=== PATIENT | female | born 2000 | race Caucasian/White ===

== ENCOUNTER 2020-04-27 17:55 | Emergency (ER) | payer OTHER ==
[~2020-04-27] VITALS: Ht 162 cm; Wt 77.0 kg
[2020-04-27] MEDS ORDERED: NS IV 1000 ML 1,000 ML IV SCH ×2 (18:45→20:00)
[2020-04-27 18:58] LABS: BILIRUBIN,URINE NEGATIVE (NEGATIVE); CLARITY,URINE OTHER; COLOR,URINE YELLOW; GLUCOSE, URINE (UA) 3+ (NEGATIVE); KETONES,URINE NEGATIVE (NEGATIVE); LEUKOCYTE ESTERASE ,URINE NEGATIVE (NEGATIVE); NITRITE,URINE NEGATIVE (NEGATIVE); PROTEIN,URINE NEGATIVE (NEGATIVE)
[2020-04-27 19:14] LABS: AMPHETAMINE SCREEN, URINE NEGATIVE (NEGATIVE); BARBITURATE SCREEN URINE NEGATIVE (NEGATIVE); BENZODIAZEPINES SCREEN URINE NEGATIVE (NEGATIVE); CANNABINOID SCREEN, URINE NEGATIVE (NEGATIVE); COCAINE SCREEN URINE NEGATIVE (NEGATIVE); METHADONE STAT NEGATIVE (NEGATIVE); METHAMPHETAMINE SCREEN URINE S NEGATIVE (NEGATIVE); OPIATE SCREEN URINE NEGATIVE (NEGATIVE); OXYCODONE STAT NEGATIVE (NEGATIVE); PROPOXYPHENE STAT NEGATIVE (NEGATIVE); TRICYCLIC ANTIDEPRESSANTS SCRE NEGATIVE (NEGATIVE)
[2020-04-27] MEDS ORDERED: ONDANSETRON 4 MG/2 ML (SDV) Z0FRAN IVP ONE (19:15)
[2020-04-27 19:18] LABS: BACTERIA,URINE FEW /HPF; RBC,URINE 0-2 /HPF; SQUAMOUS EPITHELIAL CELL,UR 0-2 /HPF; WBC,URINE 0-2 /HPF
[2020-04-27 19:18] LABS: BASOPHILS % (AUTO) 0 % (0-10); EOSINOPHILS # (AUTO) 0.1 10^3/uL (0.0-0.3); EOSINOPHILS % (AUTO) 1 % (0-10); HEMATOCRIT 41 % (35-52); HEMOGLOBIN 13.7 g/dL (11.5-16.0); LYMPHOCYTES # (AUTO) 2.1 10^3/uL (1.0-4.0); LYMPHOCYTES % (AUTO) 33 % (12-44); MEAN CORPUSCULAR HEMOGLOBIN 29 pg (25-34); MEAN CORPUSCULAR HGB CONC 33 g/dL (32-36); MEAN CORPUSCULAR VOLUME 88 fL (80-99); MEAN PLATELET VOLUME 9.2 fL (9.0-12.2); MONOCYTES # (AUTO) 0.5 10^3/uL (0.0-1.0); MONOCYTES % (AUTO) 9 % (0-12); NEUTROPHILS # (AUTO) 3.6 10^3/uL (1.8-7.8); NEUTROPHILS % (AUTO) 57 % (42-75); PLATELET COUNT 303 10^3/uL (130-400); WHITE BLOOD COUNT 6.4 10^3/uL (4.3-11.0)
[2020-04-27 19:27] LABS: CHLORIDE 104 MMOL/L (98-107); POTASSIUM 4.1 MMOL/L (3.6-5.0); SODIUM 134 MMOL/L (135-145)
[2020-04-27 19:28] LABS: AMYLASE 58 U/L (25-125); CALCIUM 8.8 MG/DL (8.5-10.1)
[2020-04-27 19:29] LABS: GLUCOSE 297 MG/DL (70-105); TOTAL PROTEIN 7.4 GM/DL (6.4-8.2)
[2020-04-27 19:30] LABS: CARBON DIOXIDE 19 MMOL/L (21-32)
[2020-04-27 19:31] LABS: BILIRUBIN,TOTAL 0.2 MG/DL (0.1-1.0)
[2020-04-27 19:33] LABS: ALKALINE PHOSPHATASE 79 U/L (40-136); CREATININE SERUM 0.87 MG/DL (0.60-1.30); GFR ESTIMATED > 60
[2020-04-27 19:34] LABS: BUN/CREATININE RATIO 11
[2020-04-27 19:36] LABS: ALANINE AMINOTRANSFERASE 19 U/L (0-55); LIPASE 31 U/L (8-78)
[2020-04-27 19:56] LABS: TSH (THYROID ANALYZER) 1.56 UIU/ML (0.35-4.94)
[2020-04-27 20:00] LABS: ABG OXYGEN SATURATION 99 % (94-100); ABG PCO2 32 MMHG (35-45); ABG PH 7.44 (7.37-7.43); ABG PO2 126 MMHG (79-93); ABG TCO2 22.5 MMOL/L (21.0-31.0); ALLENS TEST POS; INSPIRED O2 ROOM AIR
[2020-04-27] MEDS ORDERED: inSUlin (REGULAR) HUMAN 1 UNIT/0.01 ML (CHARGE PER UNIT) IV ONE (20:00)
[2020-04-27 20:01] LABS: PATIENT TEMP 37.1; VENTILATOR NO
--- NOTE | 2020-04-27 20:54 | ED General ---
General Chief Complaint: Glucose Problems Stated Complaint: TYPE I DIABETIC / GLUCOSE LVL [id number] Nursing Triage Note: Pt reports uncontrolled blood sugars for past 2 weeks stating sugars have been in 300+ and then reading low within hours. Pt states she has been on menstrual period for last 2 weeks. 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 Nursing Sepsis Screen: No Definite Risk Source of Information: Patient History of Present Illness Date Seen by Provider: Apr 27, 2020 Time Seen by Provider: 18:45 Initial Comments PT ARRIVES VIA POV WITH FEMALE FRIEND STATES SHE IS TYPE 1 DIABETIC, DX OVER A YEAR AGO--01/2019 STATES HER BLOOD SUGARS HAVE BEEN "EVERYWHERE" FOR THE LAST 2 WEEKS--STATES "THEY GO FROM 80 TO OVER 300 IN 30 MINUTES AND THEN DROP" STATES TODAY, SHE WOKE UP FROM A NAP AT 1630 AND HER BLOOD SUGAR WAS 350, "THEN IT KEPT RISING UNTIL IT WAS 410" STATES SHE TAKES TRESIBA AND HUMALOG "SLIDING SCALE" STATES SHE HAD 12 UNITS OF HUMALOG AT LUNCH AND 17 UNITS JUST PRIOR TO ARRIVAL. C/O THIRST AND URINARY FREQUENCY + NAUSEA, NO VOMITING OR DIARRHEA NO PAIN ON URINATION NO FEVER NO ABDOMINAL PAIN NO RECENT ILLNESS SYMPTOMS NO DIFFERENT PAULINO HAS NOT SOUGHT CARE UNTIL PAULINO HAS HAD ONGOING PROBLEMS WITH IRREGULAR PERIODS AND HAS BEEN ON HER PERIOD FOR THE LAST 2 WEEKS. ON OCP'S PCP [place] PT IS [facility] [place] Allergies and Home Medications Allergies Coded Allergies: acetaminophen (Verified Allergy, Unknown, 04/27/20) Patient Home Medication List Home Medication List Reviewed: Yes Review of Systems Review of Systems Constitutional: no symptoms reported; No chills, No diaphoresis, No dizziness, No fever, No malaise, No weakness EENTM: no symptoms reported Respiratory: no symptoms reported Cardiovascular: no symptoms reported Gastrointestinal: see HPI; No abdominal pain, No diarrhea; nausea; No vomiting Genitourinary: No dysuria; frequency; No hematuria, No pain Musculoskeletal: no symptoms reported Skin: no symptoms reported Psychiatric/Neurological: No Symptoms Reported Hematologic/Lymphatic: No Symptoms Reported Immunological/Allergic: no symptoms reported Past Sasoeyk-Bvymmr-Jebzsp Hx Patient Social History Alcohol Use: Occasionally Uses Drug of Choice: DENIES Smoking Status: Never a Smoker Recent Infectious Disease Expo: No Recent Hopitalizations: No Seasonal Allergies Seasonal Allergies: No Past Medical History Surgeries: Yes (LEFT ELBOW FX / ORIF) Orthopedic Respiratory: No Cardiac: No Neurological: No : No Reproductive Disorders: No Genitourinary: No Gastrointestinal: No Musculoskeletal: Yes (LEFT ELBOW FX/ORIF) Fractures Endocrine: Yes (TYPE 1 DIABETES DX 01/2019. ) Diabetes, Insulin dep HEENT: No Cancer: No Psychosocial: No Integumentary: No Blood Disorders: No Physical Exam Vital Signs Vital Signs - First Documented 04/27/20 04/27/20 18:03 20:58 Temp 37.2 Pulse 75 Resp 18 B/P (MAP) 131/85 (100) Pulse Ox 99 O2 Delivery Room Air Capillary Refill : Less Than 3 Seconds Height, Weight, BMI Height: '" Weight: lbs. oz. kg; 29.00 BMI Method: General Appearance: No Apparent Distress, WD/WN, Other (HIR DYED BLUE) HEENT: Normal ENT Inspection, Other (ORAL MUCOSA MOIST) Neck: Normal Inspection Respiratory: Normal Breath Sounds, No Accessory Muscle Use, No Respiratory Distress Cardiovascular: Regular Rate, Rhythm, No Murmur Gastrointestinal: Non Tender, Soft Back: No CVA Tenderness Extremity: Normal Inspection Neurologic/Psychiatric: Alert, Oriented x3, No Motor/Sensory Deficits, Normal Mood/Affect, security architect II-XII Norm as Tested Skin: Normal Color, Warm/Dry Focused Exam Lactate Level 04/27/20 19:27: Lactic Acid Level 1.42 Lactic Acid Level Laboratory Tests Test 04/27/20 19:27 Lactic Acid Level 1.42 MMOL/L (0.50-2.00) Progress/Results/Core Measures Suspected Sepsis Recent Fever Within 48 Hours: No Infection Criteria Present: None New/Unexplained Altered Menta: No Sepsis Screen: No Definite Risk SIRS Temperature: Pulse: 75 Respiratory Rate: 18 Laboratory Tests 04/27/20 19:05: White Blood Count 6.4 Blood Pressure 131 /85 Mean: 100 04/27/20 19:27: Lactic Acid Level 1.42 Laboratory Tests 04/27/20 19:05: Creatinine 0.87, Platelet Count 303, Total Bilirubin 0.2 Results/Orders Lab Results Laboratory Tests Test 04/27/20 18:10 04/27/20 18:50 04/27/20 19:05 04/27/20 19:08 Range/Units Glucometer 325 H 70-110 MG/DL Urine Color YELLOW Urine Clarity OTHER Urine pH 6.0 5-9 Urine Specific [place] 1.015 L 1.016-1.022 Urine Protein NEGATIVE NEGATIVE Urine Glucose (UA) 3+ H NEGATIVE Urine Ketones NEGATIVE NEGATIVE Urine Nitrite NEGATIVE NEGATIVE Urine Bilirubin NEGATIVE NEGATIVE Urine Urobilinogen 0.2 < = 1.0 MG/DL Urine Leukocyte Esterase NEGATIVE NEGATIVE Urine RBC (Auto) 1+ H NEGATIVE Urine RBC 0-2 /HPF Urine WBC 0-2 /HPF Urine Squamous Epithelial Cells 0-2 /HPF Urine Crystals NONE /LPF Urine Bacteria FEW H /HPF Urine Casts NONE /LPF Urine Mucus NEGATIVE /LPF Urine Culture Indicated NO Urine Opiates Screen NEGATIVE NEGATIVE Urine Oxycodone Screen NEGATIVE NEGATIVE Urine Methadone Screen NEGATIVE NEGATIVE Urine Propoxyphene Screen NEGATIVE NEGATIVE Urine Barbiturates Screen NEGATIVE NEGATIVE Ur Tricyclic Antidepressants Screen NEGATIVE NEGATIVE Urine Phencyclidine Screen NEGATIVE NEGATIVE Urine Amphetamines Screen NEGATIVE NEGATIVE Urine Methamphetamines Screen NEGATIVE NEGATIVE Urine Benzodiazepines Screen NEGATIVE NEGATIVE Urine Cocaine Screen NEGATIVE NEGATIVE Urine Cannabinoids Screen NEGATIVE NEGATIVE White Blood Count 6.4 4.3-11.0 10^3/uL Red Blood Count 4.66 3.80-5.11 10^6/uL Hemoglobin 13.7 11.5-16.0 g/dL Hematocrit 41 35-52 % Mean Corpuscular Volume 88 80-99 fL Mean Corpuscular Hemoglobin 29 25-34 pg Mean Corpuscular Hemoglobin Concent 33 32-36 g/dL Red Cell Distribution Width 11.8 10.0-14.5 % Platelet Count 303 130-400 10^3/uL Mean Platelet Volume 9.2 9.0-12.2 fL Immature Granulocyte % (Auto) 0 % Neutrophils (%) (Auto) 57 42-75 % Lymphocytes (%) (Auto) 33 12-44 % Monocytes (%) (Auto) 9 0-12 % Eosinophils (%) (Auto) 1 0-10 % Basophils (%) (Auto) 0 0-10 % Neutrophils # (Auto) 3.6 1.8-7.8 10^3/uL Lymphocytes # (Auto) 2.1 1.0-4.0 10^3/uL Monocytes # (Auto) 0.5 0.0-1.0 10^3/uL Eosinophils # (Auto) 0.1 0.0-0.3 10^3/uL Basophils # (Auto) 0.0 0.0-0.1 10^3/uL Immature Granulocyte # (Auto) 0.0 0.0-0.1 10^3/uL Sodium Level 134 L 135-145 MMOL/L Potassium Level 4.1 3.6-5.0 MMOL/L Chloride Level 104 98-107 MMOL/L Carbon Dioxide Level 19 L 21-32 MMOL/L Anion Gap 11 5-14 MMOL/L Blood Urea Nitrogen 10 7-18 MG/DL Creatinine 0.87 0.60-1.30 MG/DL Estimat Glomerular Filtration Rate > 60 BUN/Creatinine Ratio 11 Glucose Level 297 H 70-105 MG/DL Calcium Level 8.8 8.5-10.1 MG/DL Corrected Calcium 8.8 8.5-10.1 MG/DL Total Bilirubin 0.2 0.1-1.0 MG/DL Aspartate Amino Transf (AST/SGOT) 20 5-34 U/L Alanine Aminotransferase (ALT/SGPT) 19 0-55 U/L Alkaline Phosphatase 79 40-136 U/L Total Protein 7.4 6.4-8.2 GM/DL Albumin 4.0 3.2-4.5 GM/DL Amylase Level 58 25-125 U/L Lipase 31 8-78 U/L TSH [place] Testing 1.56 0.35-4.94 UIU/ML Serum Test, Qualitative NEGATIVE NEGATIVE Blood Gas Puncture Site LT RAD Blood Gas Patient Temperature 37.1 Arterial Blood pH 7.44 H 7.37-7.43 Arterial Blood Partial Pressure CO2 32 L 35-45 MMHG Arterial Blood Partial Pressure O2 126 H 79-93 MMHG Arterial Blood HCO3 22 L 23-27 MMOL/L Arterial Blood Total CO2 22.5 21.0-31.0 MMOL/L Arterial Blood Oxygen Saturation 99 94-100 % Arterial Blood Base Excess -2.0 -2.5-2.5 MMOL/L [place] Test POS Blood Gas Ventilator Setting NO Blood Gas Inspired Oxygen ROOM AIR Test 04/27/20 19:27 04/27/20 20:18 Range/Units Lactic Acid Level 1.42 0.50-2.00 MMOL/L Glucometer 149 H 70-110 MG/DL My Orders Orders - NEELIMA BERMUDEZ DO Accucheck Stat ONCE (04/27/20 18:44) Ed Iv/Invasive Line Start (04/27/20 18:44) Urine Bedside (04/27/20 18:44) Monitor-Rhythm Ecg Trace Only (04/27/20 18:44) Amylase (04/27/20 18:44) Arterial Blood Gas (04/27/20 18:44) Cbc With Automated Diff (04/27/20 18:44) Comprehensive Metabolic Panel (04/27/20 18:44) Drug Screen Stat (Urine) (04/27/20 18:44) Hcg,Qualitative Serum (04/27/20 18:44) Lactic Acid Analyzer (04/27/20 18:44) Lipase (04/27/20 18:44) Thyroid Analyzer (04/27/20 18:44) Ua Culture If Indicated (04/27/20 18:44) Ed Iv/Invasive Line Start (04/27/20 18:44) Ns Iv 1000 Ml (Sodium Chloride 0.9%) (04/27/20 18:45) Ondansetron Injection (Zofran Injectio (04/27/20 19:15) Insulin (Regular) Human (Novolin R (Per (04/27/20 20:00) Ed Iv/Invasive Line Start (04/27/20 19:46) Ns Iv 1000 Ml (Sodium Chloride 0.9%) (04/27/20 20:00) Accucheck Stat ONCE (04/27/20 20:08) Medications Given in ED Current Medications Medications Dose Ordered Sig/Aundrea Route Start Time Stop Time Status Last Admin Dose Admin Ondansetron HCl 4 mg ONCE ONCE IVP 04/27/20 19:15 04/27/20 19:16 DC 04/27/20 19:19 4 MG Vital Signs/I&O 04/27/20 04/27/20 18:03 20:58 Temp 37.2 37.0 Pulse 75 87 Resp 18 16 B/P (MAP) 131/85 (100) 120/84 (100) Pulse Ox 99 O2 Delivery Room Air Room Air 04/27/20 23:59 Intake Total 2000 ml Balance 2000 ml Capillary Refill : Less Than 3 Seconds Blood Pressure Mean: 100 Point of Care Testing Finger Stick Blood Glucose: 149 Blood Glucose Action Taken: DR BERMUDEZ INFORMED Progress Note : Progress Note GIVEN IV FLUIDS REPEAT ACCUCHECK 149, SO INSULIN HELD UNEVENTFUL ER STAY. Departure Impression Primary Impression: Uncontrolled diabetes mellitus Disposition: 01 HOME, SELF-CARE Condition: Stable Departure-Patient Inst. Referrals: NO,LOCAL PHYSICIAN (PCP) Primary Care Physician SATHISH PILLAI MD Patient Instructions: How to Keep Track of Your Blood Sugar, How to Prevent Hig h Blood Sugar Emergencies in Diabetes, Diabetes and Diet, Diabetes Type 1, Adult (DC) Add. Discharge Instructions: CHECK YOUR BLOOD SUGARS 4 TIMES A DAY--BEFORE EACH MEAL AND AT BEDTIME FOLLOW DIABETIC DIET 1200 CALORIES INCREASE YOUR PROTEIN AND DECREASE YOUR CARBOHYDRATE INTAKE FOLLOW UP WITH [facility] IN 1-2 DAYS FOR FURTHER CARE All discharge instructions reviewed with patient and/or family. Voiced understanding. NEELIMA BERMUDEZ DO Apr 27, 2020 20:54
[2020-04-27 20:58] VITALS: BP 120/84
== END 2020-04-27 21:05 | disposition home or self-care (01) ==
LOC: ER 17:58
DX: E10.65 Type 1 diabetes mellitus with hyperglycemia (principal); I10 Essential (primary) hypertension; Z88.6 Allergy status to analgesic agent
CPT/HCPCS: 36415; 80053; 80306; 81000; 82150; 82805; 82962; 83605; 83690; 84443; 84703; 85025; 93041

== ENCOUNTER → 2021-05-05 | Outpatient (CLI) | payer OTHER ==
--- NOTE | 2021-05-05 13:26 | Diagnostic Imaging Report ---
INDICATION: Anatomy scan. TECHNIQUE: Multiple real-time grayscale images were obtained over the gravid uterus. COMPARISON: None FINDINGS: There is a single live fetus in the cephalic presentation. heart rate was recorded at 153 bpm. Placenta is anterior. Amniotic fluid volume is normal. Cervical length is 5.7 cm. survey shows kidneys, bladder and stomach to be unremarkable. brains unremarkable. There is a four-chamber heart. There is a three-vessel cord with normal insertion. spine is unremarkable. Biometrical measurements are as follows: Biparietal 5.33 cm, age 22 weeks 2 days. Head circumference 19.95 cm, age 22 weeks 1 days. Abdominal circumference 16.81 cm, age 21 weeks 6 days. Femur length 3.90 cm, age 22 weeks 4 days. Sonographic estimate age: 22 weeks 2 days. Sonographic estimated date of delivery: 09/06/21. Estimated Weight: 479 gm (+/- 70 gm). LMP percentile: 86%. heart rate: 153 beats per minute. number: 1 of 1. IMPRESSION: Single live IUP 22 weeks 2 days gestational age with estimated of confinement sonographically of 09/06/2021. Dictated by: Dictated on workstation # [id number]
== END ==
LOC: RAD 12:00
PROVIDERS: ATTEND Obstetrics & Gynecology
DX: Z34.02 Encounter for supervision of normal first pregnancy, second trimester (principal); Z3A.22 22 weeks gestation of pregnancy
CPT/HCPCS: 76805

== ENCOUNTER 2021-06-12 04:21 | Outpatient (CLI) | payer OTHER ==
[~2021-06-12] VITALS: Ht 162.5 cm; Wt 91.6 kg
[2021-06-12 04:41] VITALS: BP 117/66
[2021-06-12 04:52] VITALS: BP 117/66
[2021-06-12 04:57] LABS: BILIRUBIN,URINE NEGATIVE (NEGATIVE); CLARITY,URINE CLEAR; COLOR,URINE YELLOW; GLUCOSE, URINE (UA) TRACE (NEGATIVE); KETONES,URINE NEGATIVE (NEGATIVE); LEUKOCYTE ESTERASE ,URINE TRACE (NEGATIVE); NITRITE,URINE NEGATIVE (NEGATIVE); PROTEIN,URINE NEGATIVE (NEGATIVE)
[2021-06-12 05:07] LABS: BACTERIA,URINE NEGATIVE /HPF; SQUAMOUS EPITHELIAL CELL,UR 0-2 /HPF; WBC,URINE 0-2 /HPF
--- NOTE | 2021-06-13 08:18 | Physician Query-Final Dx ---
HERMINIO,06/13/21 0818: Clinic Account Progress/Dx Physician Query: Please give diagnosis Please include # weeks gestation Date of Service Jun 12, 2021 at 04:21 MARIE MACKAY MD 06/13/21 0855: Clinic Account Progress/Dx Physician Query: Please give diagnosis Date of Service 06/11/2021 DIAGNOSIS: Diagnosis Abdominal Trauma after fall in ,FebJun 13, 2021 08:18 MARIE MACKAY MD Jun 13, 2021 08:55
== END 2021-06-12 05:21 ==
LOC: WSo 04:21 → LDRP 04:22 → WSo 05:21
PROVIDERS: ATTEND Obstetrics & Gynecology
DX: O26.892 Other specified pregnancy related conditions, second trimester (principal); O26.812 Pregnancy related exhaustion and fatigue, second trimester; R51.9 Headache, unspecified; R11.0 Nausea; Z3A.26 26 weeks gestation of pregnancy
CPT/HCPCS: 81000; G0463; 99212